=== PATIENT | male | born 1955 ===

== ENCOUNTER 2020-07-15 08:53 | Outpatient (CLI) | payer OTHER | END 2020-07-15 19:37 | disposition home or self-care (01) | LOC: INF 08:53 | PROVIDERS: ATTEND Internal Medicine | DX: Z23 Encounter for immunization (principal) | CPT/HCPCS: 96372 ==

== ENCOUNTER 2020-08-04 08:41 | Outpatient (CLI) | payer OTHER | END 2020-08-04 20:00 | disposition home or self-care (01) | LOC: INF 08:41 | PROVIDERS: ATTEND Internal Medicine | DX: Z23 Encounter for immunization (principal) | CPT/HCPCS: 96372 ==